=== PATIENT | male | born 1970 | race Two or more races ===

== ENCOUNTER 2018-11-07 11:53 | Emergency (ER) | payer SELFPAY ==
[2018-11-07] MEDS ORDERED: ACETAMINOPHEN 325 MG TABLET PO ONE (12:34)
[2018-11-07] MEDS ORDERED: IBUPROFEN 600 MG TABLET PO ONE (12:34)
--- NOTE | 2018-11-07 12:55 | RADIOLOGY REPORT (SQ) ---
EXAM DESCRIPTION: ANKLE LEFT COMPLETE COMPLETED DATE/TIME: 11/07/2018 12:48 pm REASON FOR STUDY: pain, swelling COMPARISON: None. NUMBER OF VIEWS: Three views. TECHNIQUE: AP, lateral, and oblique radiographic images acquired of the left ankle. LIMITATIONS: None. FINDINGS: MINERALIZATION: Normal. BONES: No acute fracture or dislocation. No worrisome bone lesions. Incidental os trigonum. JOINTS: No effusions. SOFT TISSUES: No soft tissue swelling. No foreign body. OTHER: No other significant finding. IMPRESSION: No fracture or dislocation of the left ankle. No radiographic findings to explain ankle pain. This may be further evaluated by MRI if desired TECHNICAL DOCUMENTATION: JOB ID: [id number] [employer]- All Rights Reserved Reading location - IP/workstation name: [email or web address]
--- NOTE | 2018-11-07 13:10 | ER Document Report ---
ED Medical Screen (RME) - General Chief Complaint: Ankle Pain Stated Complaint: LEFT ANKLE PAIN/SWELLING Time Seen by Provider: 11/07/18 12:29 Mode of Arrival: Ambulatory Information source: Patient Notes: Patient is a 48-year-old male who presents the emergency department chief complaint of left ankle pain. She reports pain on the lateral aspect of the left ankle, denies any recent injury or trauma. Patient reports it has been intermittently red and hot. He reports pain radiates all the way up into the back of his calf and behind his knee. Exam: Normal dorsalis pedis pulse. Mild swelling noted on the lateral aspect of the left ankle, no erythema or ecchymosis noted. I have greeted and performed a rapid initial assessment of this patient. A comprehensive ED assessment and evaluation of the patient, analysis of test results and completion of the medical decision making process will be conducted by additional ED providers. Dictation of this chart was performed using voice recognition software; therefore, there may be some unintended grammatical errors. TRAVEL OUTSIDE OF THE [place] IN LAST 30 DAYS: No - Related Data Allergies/Adverse Reactions: No Known Allergies Allergy (Unverified 06/03/18 09:46) Past Medical History - Social History Chew tobacco use (# tins/day): Yes Frequency of alcohol use: Social Drug Abuse: None Renal/ Medical History: Denies: Hx Peritoneal Dialysis Psychiatric Medical History: Reports: Hx Depression - Anxiety Past Surgical History: Reports: Hx Orthopedic Surgery - L elbow (chipped) Physical Exam - Vital signs Vitals: Temp Pulse Resp BP Pulse Ox 97.9 F 106 H 16 154/99 H 97 11/07/18 11:56 11/07/18 11:56 11/07/18 11:56 11/07/18 11:56 11/07/18 11:56 Course - Vital Signs Vital signs: Temp Pulse Resp BP Pulse Ox 97.9 F 106 H 16 154/99 H 97 11/07/18 11:56 11/07/18 11:56 11/07/18 11:56 11/07/18 11:56 11/07/18 11:56
[2018-11-07] MEDS ORDERED: LIDOCAINE 5% (700 MG) TRANSDERMAL ADH..PATCH TP ONE (15:11)
--- NOTE | 2018-11-07 15:14 | ER Document Report ---
HPI - HPI Patient complains to provider of: Left ankle pain Time Seen by Provider: 11/07/18 12:29 Onset: Other - 2 weeks Onset/Duration: Persistent Quality of pain: Achy Pain Level: 5 Context: Patient presents complaining of left lateral ankle pain for the past 2 weeks. Patient is uncertain of any particular injury. Patient denies any fever. Patient denies any foot discoloration. Patient complains of increased pain with weightbearing. Associated Symptoms: Other - Left ankle pain Exacerbated by: Standing, Movement, Walking Relieved by: Denies Similar symptoms previously: Yes Recently seen / treated by doctor: No - ROS ROS below otherwise negative: Yes Systems Reviewed and Negative: Yes All other systems reviewed and negative - CONSTITUTIONAL Constitutional: DENIES: Fever - NEURO Neurology: DENIES: Weakness - GASTROINTESTINAL Gastrointestinal: DENIES: Nausea - MUSCULOSKELETAL Musculoskeletal: REPORTS: Extremity pain - DERM Skin Color: Normal Skin Problems: None Past Medical History - General Information source: Patient - Social History Smoking Status: Never Smoker Chew tobacco use (# tins/day): Yes Frequency of alcohol use: Social Drug Abuse: None Occupation: Auto detail Family History: Reviewed & Not Pertinent Patient has suicidal ideation: No Patient has homicidal ideation: No Renal/ Medical History: Denies: Hx Peritoneal Dialysis Psychiatric Medical History: Reports: Hx Depression - Anxiety Past Surgical History: Reports: Hx Orthopedic Surgery - L elbow (chipped) Vertical Provider Document - CONSTITUTIONAL Agree With Documented VS: Yes Exam Limitations: No Limitations General Appearance: WD/WN, No Apparent Distress - INFECTION CONTROL TRAVEL OUTSIDE OF THE [place] IN LAST 30 DAYS: No - HEENT HEENT: Atraumatic, Normocephalic - NECK Neck: Normal Inspection, Supple - RESPIRATORY Respiratory: No Respiratory Distress - CARDIOVASCULAR Pulses: Normal: Dorsalis pedis - MUSCULOSKELETAL/EXTREMETIES Musculoskeletal/Extremeties: MAEW, FROM, Tender - Tenderness to left lateral ankle, just inferior to the lateral malleolar area. Normal skin color and temperature. No obvious edema. No tenderness with palpation. Patient does have tenderness with weightbearing., No Edema. negative: Eccymosis - NEURO Level of Consciousness: Awake, Alert, Appropriate Motor/Sensory: No Motor Deficit - DERM Integumentary: Warm, Dry Course - Re-evaluation Re-evalutation: 11/07/18 Patient's x-ray reviewed, no concern for fracture. Patient without fever. Normal skin color and temperature overlying joint. No concern for septic arthritis at this time. Patient encouraged to follow-up with orthopedics for further evaluation. - Vital Signs Vital signs: Temp Pulse Resp BP Pulse Ox 97.9 F 106 H 16 154/99 H 97 11/07/18 11:56 11/07/18 11:56 11/07/18 11:56 11/07/18 11:56 11/07/18 11:56 - Diagnostic Test Radiology reviewed: Image reviewed, Reports reviewed Procedures - Immobilization Left Ankle Pre-Proc Neuro Vasc Exam: Normal Immobilizer type: Ankle stirrup Performed by: RN Post-Proc Neuro Vasc Exam: Normal Alignment checked and good: Yes Discharge - Discharge Clinical Impression: Left ankle sprain Qualifiers: Encounter type: initial encounter Involved ligament of ankle: unspecified ligament Qualified Code(s): S93.402A - Sprain of unspecified ligament of left ankle, initial encounter Condition: Stable Disposition: HOME, SELF-CARE Instructions: Ankle Stirrup Splint ([facility]), Use of Crutches ([facility]), Sprained Ankle ([facility]) Additional Instructions: Return immediately for any new or worsening symptoms Followup with your primary care provider, call tomorrow to make a followup appointment Weightbearing as tolerated Follow-up with orthopedics for further evaluation, call today to make a follow- up appointment Prescriptions: Naproxen [Naprosyn 250 Nmg Tablet] 1 tab PO BID #14 tablet Forms: Return to Work Referrals: [facility] [Provider Group] - Follow up tomorrow
[2018-11-07 15:46] VITALS: BP 150/88
== END 2018-11-07 15:46 | disposition home or self-care (01) ==
LOC: ER 11:53
DX: S93.402A Sprain of unspecified ligament of left ankle, initial encounter (principal); X58.XXXA Exposure to other specified factors, initial encounter
CPT/HCPCS: 99283; 73610; L1902